=== PATIENT | female | born 2000 | race Caucasian/White ===

== ENCOUNTER 2019-11-23 04:04 | Emergency (ER) | payer SELFPAY | END 2019-11-23 04:38 | disposition home or self-care (01) | LOC: ERS 04:04 | DX: F10.129 Alcohol abuse with intoxication, unspecified (principal) | CPT/HCPCS: 99284 ==

== ENCOUNTER 2020-03-01 01:40 | Emergency (ER) | payer SELFPAY | END 2020-03-01 03:45 | disposition home or self-care (01) | LOC: ERS 01:40 | DX: F10.129 Alcohol abuse with intoxication, unspecified (principal); Y90.7 Blood alcohol level of 200-239 mg/100 ml | CPT/HCPCS: 80307; 96360; 96361 ==